=== PATIENT | female | born 1995 | race Caucasian/White ===

== ENCOUNTER → 2022-04-20 | Outpatient (CLI) | payer OTHER ==
--- NOTE | 2022-04-20 14:02 | Diagnostic Imaging Report ---
Indication: Right breast lump. Patient is 7 weeks and breast-feeding. Sonographic interrogation of the area of lump right breast was performed. There is a complex cystic mass at the 9-9:30 location of the right breast, 7 to 8 cm from the nipple measuring 3.6 x 2.3 x 2.6 cm. A minimal blood flow along the margins is seen but no internal blood flow is present. IMPRESSION: Bi-rads category 3 Mixed solid and cystic mass at the area of lump in the 9:00 location right breast. In a lactating woman, this most likely represents a galactocele. A follow-up ultrasound could be performed to confirm resolution and/or stability. A lactating adenoma, fibroadenoma or breast abscess would be considered less likely but within the differential. ACR BI-RADS Category 3: Probably benign findings. Dictated by: Dictated on workstation # [id number]
== END ==
LOC: RAD 12:30
PROVIDERS: ATTEND Obstetrics & Gynecology
DX: N60.01 Solitary cyst of right breast (principal)
CPT/HCPCS: 76641

== ENCOUNTER → 2022-10-01 | Outpatient (CLI) | payer OTHER ==
--- NOTE | 2022-10-01 11:50 | Diagnostic Imaging Report ---
Indication: Right breast mass. Patient presents for follow-up. Correlation is made with a right breast ultrasound from 04/20/2022. Sonographic interrogation of the 9:00 location right breast was performed. This a 7 to 8 cm from the nipple. The mixed echogenicity lesion does appear to be slightly decreased in size, now measuring 2.4 x 1.2 x 2.6 cm compared with 3.6 x 2.3 x 2.6 cm on prior. There are mixed areas of increased and decreased echogenicity. There is some internal blood flow present. This is somewhat lobulated. No other masses are detected. IMPRESSION: BI-RADS Category 3 Slight decrease in size of mixed echogenicity mass 9:00 location right breast, 7 to 8 cm from the nipple when compared with prior examination from 5 months earlier. This again is likely a benign etiology. Even so, follow-up in 6 months is recommended to confirm stability. ACR BI-RADS Category 3: Probably benign findings. Dictated by: Dictated on workstation # [id number]
== END ==
LOC: RAD 10:12
PROVIDERS: ATTEND Obstetrics & Gynecology
DX: N63.10 Unspecified lump in the right breast, unspecified quadrant (principal)
CPT/HCPCS: 76641

== ENCOUNTER → 2022-11-29 | Outpatient (CLI) | payer OTHER ==
[~2022-11-29] VITALS: Ht 170.2 cm; Wt 63.6 kg
[~2022-11-29] MED LIST: LIDOCAINE 1% INJ 30 ML (XYLOCAINE) VIAL INJ ONE
--- NOTE | 2022-11-29 12:12 | Diagnostic Imaging Report ---
INDICATION: Right breast mass. Patient presents for ultrasound-guided core biopsy. Patient brought to the sonographic suite and placed on the bed in the supine position. Ultrasound imaging of the right breast was performed to evaluate appropriate entry site. Right breast was then prepped and draped in usual sterile fashion. Small amount of 1% lidocaine was utilized for local anesthesia. A total of 4 core biopsies were made of the solid appearing lesion at the 9 o'clock location right breast utilizing 14-gauge Achieve needle. A marker clip was then deployed. Hemostasis was obtained using manual compression. Patient tolerated the procedure well and left department in stable condition. IMPRESSION: Successful ultrasound-guided core biopsy of the solid mass at the 9 o'clock location of the right breast. Pathology results are currently pending. Dictated by: Dictated on workstation # [id number]
== END ==
LOC: RAD 10:07
PROVIDERS: ATTEND Obstetrics & Gynecology
DX: N63.15 Unspecified lump in the right breast, overlapping quadrants (principal)
CPT/HCPCS: 19083